=== PATIENT | female | born 1990 | race African-American/Black ===

== ENCOUNTER 2018-08-23 06:43 | Emergency (ER) | payer MEDICAID ==
[2016-05-25 08:00] VITALS: BP 113/68
== END 2018-08-23 08:32 | disposition left against medical advice (07) ==
LOC: ER 06:43
DX: R11.2 Nausea with vomiting, unspecified (principal); R10.13 Epigastric pain; Z53.21 Procedure and treatment not carried out due to patient leaving prior to being seen by health care provider